=== PATIENT | male | born 1970 | race Caucasian/White ===

== ENCOUNTER → 2017-09-09 13:27 | Outpatient (CLI) | payer OTHER, SELFPAY ==
--- NOTE | 2017-09-12 07:53 | PM.PFT.1 ---
Pulmonary Function Test Referral & Results Date Patient Seen: 09/09/17 Requesting provider: Alice Garrido Results: The spirometry demonstrates an FVC of 5.01 L which is 101% of predicted. The FEV1 was measured at 3.90 L which is 101% of predicted. The FEV1/FVC ratio was 78 which is 99% of predicted. No bronchodilator was administered Lung volumes show an SVC of 5.26 L which is 109% of predicted. The diffusing capacity was measured at 30.00 which is 96% of predicted. The maximum voluntary ventilation was normal. Interpretation: This study demonstrates normal pulmonary function
== END ==
PROVIDERS: PCP Internal Medicine; Visit Provider Physician Assistant
DX: R05 Cough (principal); R06.02 Shortness of breath
CPT/HCPCS: 94010; 94726; 94729

== ENCOUNTER → 2018-01-08 11:25 | Outpatient (CLI) | payer OTHER, SELFPAY ==
--- NOTE | 2018-01-08 | DI.RAD.S_ITS ---
PROCEDURE: XR KNEE LT 3V INDICATIONS: PAIN IN LEFT LEG TECHNIQUE: 3 views of the knee were acquired. COMPARISON: None. FINDINGS: Bones: No fractures or dislocations. No suspicious bony lesions. Soft tissues: No joint effusion. No suspicious soft tissue calcifications. IMPRESSION: Source of left leg pain is not identified. Dictated by: Yoan Wiseman M.D. on 01/08/2018 at 12:53 Approved by: Yoan Wiseman M.D. on 01/08/2018 at 12:53
--- NOTE | 2018-01-08 | DI.RAD.S_ITS ---
PROCEDURE: XR LUMBAR SPINE 2-3V INDICATIONS: PAIN IN LEFT LEG TECHNIQUE: 2 views of the lumbar spine were acquired. COMPARISON: None. FINDINGS: Bones: 5 [id number] vertebrae are present. There is normal bony alignment. No vertebral body compression fractures. No suspicious bony lesions. Soft tissues: Overlying bowel gas pattern is normal. No suspicious soft tissue calcifications. IMPRESSION: Normal for age, source of current symptoms is not seen. Dictated by: Yoan Wiseman M.D. on 01/08/2018 at 15:12 Approved by: Yoan Wiseman M.D. on 01/08/2018 at 15:12
== END ==
PROVIDERS: PCP Internal Medicine; Visit Provider Physician Assistant
DX: M79.605 Pain in left leg (principal)
CPT/HCPCS: 72100; 73562

== ENCOUNTER → 2018-09-28 12:42 | Outpatient (CLI) | payer OTHER, SELFPAY ==
[2018-09-28 14:02] LABS: Blood Urea Nitrogen 18 mg/dL (9-20); Calcium 9.8 mg/dL (8.4-10.2); Carbon Dioxide 25 mmol/L (22-32); Chloride 107 mmol/L (98-107); Estimated Glomerular Filt Rate > 60.0 mL/min (>60); Glucose 98 mg/dL (70-100); HEMOLYSIS < 15 (0-50); Potassium 4.4 mmol/L (3.4-5.1); Sodium 143 mmol/L (137-145)
[2018-09-28 14:05] LABS: Hemoglobin A1C% w Est Avg Glu 5.2 % (4.0-6.0)
== END ==
PROVIDERS: PCP Physician Assistant; Visit Provider Physician Assistant
DX: I10 Essential (primary) hypertension (principal); E16.2 Hypoglycemia, unspecified
CPT/HCPCS: 36415; 80048; 83036

== ENCOUNTER → 2020-05-15 11:05 | Outpatient (CLI) | payer OTHER, SELFPAY ==
[2020-05-15 13:03] LABS: COVID19 -Nasal RAPID Negative (Negative)
== END ==
PROVIDERS: PCP Physician Assistant; Visit Provider Physician Assistant
DX: Z01.812 Encounter for preprocedural laboratory examination (principal); Z20.822 Contact with and (suspected) exposure to COVID-19
CPT/HCPCS: 87635

== ENCOUNTER 2020-05-17 08:31 | Day surgery (SDC) | payer OTHER, SELFPAY ==
--- NOTE | 2020-05-17 | PATH_ITS ---
[facility] Accession Number: [id number] . 01 Material submitted: . colon - TRANSVERSE COLON POLYP . 01 Clinical history: . SCREENING COLONOSCOPY . 02 Diagnosis: Transverse Colon, Polyp, Biopsy: Tubular adenoma. Additional levels were examined. [facility] 05/23/2020 1534 Local . 02 Electronically signed: . Essie Larson MD, Pathologist NPI- [id number] . 01 Gross description: . The specimen is received in formalin, labeled transverse colon polyp and consists of a 0.8 x 0.3 x 0.2 cm jean fragment of soft tissue which is entirely submitted in cassette A1. ([id number]) /MRV 05/18/2020 1418 Local . 02 Pathologist provided ICD-10: D12.3 . 02 CPT . 561477 Performed at: 01 [facility] [address], [place], [place] [id number] MD Baljit Morgan MD Phone: [phone] Performed at: [facility] [address] [place], [place] [id number] MD Essie Larson MD Phone: [phone]
[2020-05-17] MEDS: SODIUM CHLORIDE 0.9% 1,000 ML 100 ML IV (08:55)
[2020-05-17 08:56] VITALS: BP 127/77; PULSE 86; RESP 12; TEMP 36.2; O2SAT 100; BMI 27.3
--- NOTE | 2020-05-17 09:15 | PM.HP.1 ---
History of Present Illness History of Present Illness Date Patient Seen: 05/17/20 Chief complaint: SCREENING COLONOSCOPY Narrative: First screening colonoscopy Patient History Family & Social History Social History: household members spouse Tobacco & Substance use: Smoking Status Current every day smoker alcohol intake former Substance Use Type does not use,marijuana Meds Home Medications and Allergies Home Medications Medication Instructions Recorded Confirmed Type BusPIRone Hydrochloride (BUSPAR~) 10 mg INHALATION PRN PRN #0 06/04/10 05/17/20 History Xanax 0.25 mg PO PRN PRN 05/17/20 05/17/20 History lisinopril 20 mg PO DAILY 05/17/20 05/17/20 History Allergies Allergy/AdvReac Type Severity Reaction Status Date / Time No Known Drug Allergies Allergy Verified 05/17/20 08:46 Exam Vital Signs (past 8 hours): - 05/17/20 08:56 Temperature 97.1 F L Pulse Rate 86 Respiratory Rate 12 Blood Pressure 127/77 Pulse Oximetry 100 Oxygen Delivery Method Room Air Narrative Exam Narrative: Oropharynx free of lesions Chest clear to auscultation percussion Cardiac exam reveals no S3 or murmur Assessment & Plan Assessment & Plan narrative: For screening colonoscopy. Risks, benefits, alternatives have been explained.
--- NOTE | 2020-05-17 09:16 | PM.OP.ENDO ---
Operative Date/Time/Diagnoses Date of procedure: 05/17/20 Pre-op diagnosis: See indication and findings Procedure & Clinicians Study performed: Colonoscopy Same procedure as scheduled: Yes Indications: Screening Surgeon: Jazmine Collins Procedure Notes Procedure in detail: After informed consent was obtained the patient was placed in left lateral decubitus position. The video colonoscope was introduced the rectum slowly advanced to cecum. Preparation was good. On slow withdrawal mucosa was carefully examined. The scope was removed. The patient of the procedure well. Blood loss none Complications none Sedation Total sedation time 18 minutes Fentanyl 150 micro g Versed 7 mg IV titration Findings 1. 4 mm polyp in the midtransverse colon, Jumbo biopsy removed completely 2. Scattered sigmoid diverticulosis 3. Otherwise negative colonoscopy to cecum. Will follow up on pathology results but most likely he will require follow-up colonoscopy in 7 years.
[2020-05-17] MEDS: MIDAZOLAM 5 MG/5 ML VIAL IV (10:16)
[2020-05-17] MEDS: fentaNYL 250 MCG/5 ML INJ IV (10:16)
[2020-05-17 10:26] VITALS: BP 85/49; PULSE 82; RESP 16; TEMP 36.8; O2SAT 95
[2020-05-17 10:31] VITALS: BP 108/68; PULSE 83; RESP 16; O2SAT 97
[2020-05-17 10:36] VITALS: BP 106/72; PULSE 74; RESP 10; O2SAT 96
[2020-05-17 10:42] VITALS: BP 107/74; PULSE 76; RESP 12; TEMP 36.3; O2SAT 96
== END 2020-05-17 10:56 | disposition home or self-care (01) ==
PROVIDERS: PCP Physician Assistant; Referring Provider Internal Medicine Gastroenterology; Visit Provider Internal Medicine Gastroenterology
PROC: 0DJD8ZZ Inspection of Lower Intestinal Tract, Via Natural or Artificial Opening Endoscopic (ICD-10-PCS; CPT 45378; principal; 2020-05-17 10:00)
DX: Z12.11 Encounter for screening for malignant neoplasm of colon (principal); F17.210 Nicotine dependence, cigarettes, uncomplicated; K57.30 Diverticulosis of large intestine without perforation or abscess without bleeding; D12.3 Benign neoplasm of transverse colon
CPT/HCPCS: 45380; J2250; J3010

== ENCOUNTER → 2023-12-02 10:59 | Outpatient (CLI) | payer BC, SELFPAY ==
--- NOTE | 2023-12-02 | DI.US.S_ITS ---
PROCEDURE: US ABDOMEN LIMITED INDICATIONS: ELEVATED LFTs TECHNIQUE: Real-time scanning was performed of the abdominal and retroperitoneal organs, with image documentation. COMPARISON: None. FINDINGS: Liver: Liver is normal in size and increased in echogenicity. Gallbladder: No gallstones. No wall thickening. No pericholecystic edema. Negative sonographic Oconnor's sign. Biliary ducts: Intrahepatic bile ducts are non-dilated. Extrahepatic bile duct caliber measures 4.0 mm. Normal is 6-7 mm or less in diameter, or 10 mm or less post-cholecystectomy. Pancreas: Visualized portions of the pancreas are sonographically normal. Tail is not well seen. Miscellaneous: No free abdominal fluid. IMPRESSION: Increased hepatic echogenicity, most consistent with hepatic steatosis. Dictated by: Yaron Preciado M.D. on 12/02/2023 at 12:38 Approved by: Yaron Preciado M.D. on 12/02/2023 at 12:38
== END ==
PROVIDERS: PCP Physician Assistant; Referring Provider Physician Assistant; Visit Provider Physician Assistant
DX: R79.89 Other specified abnormal findings of blood chemistry (principal)
CPT/HCPCS: 76705

== ENCOUNTER → 2024-05-26 12:45 | Outpatient (CLI) | payer BC, SELFPAY ==
--- NOTE | 2024-05-26 12:47 | DI.CT.S_ITS ---
PROCEDURE: CT LUNG LOW DOSE SCREENING INDICATIONS: LUNG CANCER SCREENING TECHNIQUE: Noncontrast 2.0-2.5 mm thick sections acquired from the pulmonary apices to the posterior costophrenic angles. 7 mm thick axial MIP, and 5 mm coronal and sagittal reformats were then acquired. For radiation dose reduction, the following was used: automated exposure control, adjustment of mA and/or kV according to patient size. COMPARISON: None. FINDINGS: Image quality: Diagnostic. Lower Neck: No enlarged lymph nodes. Thyroid: No thyroid nodules which require sonographic follow up, per consensus guidelines. Axillae: No enlarged lymph nodes. Chest Wall: Unremarkable. Bones: No aggressive appearing bony lesions. Lungs and Pleura: No pneumothorax or pleural effusions. No consolidations. 2 mm nodule in left apex series 3, image 69. 4 mm solid nodule in left lower lobe anterior aspect series 3, image 183. 3 mm solid nodule is seen in anterior right lower lobe near right lung base series 3, image 219. Heart: Heart size is normal. No pericardial effusion. Thoracic Vessels: The aorta and pulmonary arteries demonstrate normal size. Mediastinum and Osiris: No enlarged lymph nodes. Esophagus: No wall thickening. No hiatal hernia. Upper Abdomen: Visualized upper abdomen solid organs and bowel loops appear normal. IMPRESSION: 1. Small pulmonary nodule seen in bilateral lung jose measures up to 4 mm in size in left lower lobe as described above. LUNG-RADS 3; probably benign; recommend 6 month follow-up CT. Clinically Significant Non-pulmonary Findings: Mild atherosclerotic calcifications in coronary arteries. Dictated by: Bobo Mcclelland M.D. on 05/26/2024 at 15:29 Approved by: Bobo Mcclelland M.D. on 05/26/2024 at 15:42
== END ==
PROVIDERS: PCP Physician Assistant; Referring Provider Physician Assistant; Visit Provider Physician Assistant
DX: Z12.2 Encounter for screening for malignant neoplasm of respiratory organs (principal); Z87.891 Personal history of nicotine dependence; R91.8 Other nonspecific abnormal finding of lung field; I25.10 Atherosclerotic heart disease of native coronary artery without angina pectoris
CPT/HCPCS: 71271

== ENCOUNTER → 2024-11-25 10:43 | Outpatient (CLI) | payer BC, SELFPAY ==
--- NOTE | 2024-11-25 10:44 | DI.CT.S_ITS ---
PROCEDURE: CT CHEST WO CON INDICATIONS: nodule follow-up TECHNIQUE: Noncontrast 2.0-2.5 mm thick sections acquired from the pulmonary apices to the posterior costophrenic angles. 7 mm thick axial MIP, and 5 mm coronal and sagittal reformats were then acquired. For radiation dose reduction, the following was used: automated exposure control, adjustment of mA and/or kV according to patient size. COMPARISON: [facility], CT, CT LUNG LOW DOSE SCREENING, 05/26/2024, 12:55. FINDINGS: Image quality: Diagnostic. Lower Neck: No enlarged lymph nodes. Thyroid: No thyroid nodules which require sonographic follow up, per consensus guidelines. Axillae: No enlarged lymph nodes. Chest Wall: Unremarkable. Bones: Unremarkable. Lungs and Pleura: No pneumothorax or pleural effusions. Stable 4 mm triangular nodule in the left major fissure, likely an intra fissural lymph node (5/185) . Otherwise stable micro nodules. No new or suspicious pulmonary nodule. Heart: Heart size is normal. No pericardial effusion. Moderate calcifications of the left anterior descending coronary artery. Thoracic Vessels: The aorta and pulmonary arteries demonstrate normal size. Mediastinum and Osiris: No enlarged lymph nodes. Esophagus: No wall thickening. No hiatal hernia. Upper Abdomen: Visualized upper abdomen solid organs and bowel loops appear normal. IMPRESSION: No suspicious pulmonary nodules. LUNG-RADS 2; continued annual screening, if eligible. Clinically Significant Non-pulmonary Findings: Moderate calcifications of the left anterior descending coronary artery. Correlate with risk factors, symptoms, and consider cardiology referral versus lifestyle modifications. Dictated by: Derick No M.D. on 11/25/2024 at 16:12 Approved by: Derick No M.D. on 11/25/2024 at 16:16
== END ==
LOC: CT 10:44
PROVIDERS: PCP Physician Assistant; Referring Provider Physician Assistant; Visit Provider Physician Assistant
DX: R91.8 Other nonspecific abnormal finding of lung field (principal)
CPT/HCPCS: 71250